=== PATIENT | male | born 1945 | race Caucasian/White ===

== ENCOUNTER → 2020-01-11 | Day surgery (SDC) | payer OTHER, BC ==
[2020-01-10 10:31] VITALS: BMI 31.2
[~2020-01-11] MED LIST: BUPIVACAINE HCL/PF 0.25% (2.5MG/ML) 10 ML VIAL ONE; BUPIVACAINE HCL/PF 0.75% 10 ML VIAL ONE; DEXAMETHASONE SOD PHOSPHATE 4 MG/1 ML VIAL ONE; LIDOCAINE HCL 1%, 10 MG/ML (20ML VIAL) INF ONE; LIDOCAINE HCL 1%, 10 MG/ML (20ML VIAL) ONE; LIDOCAINE HCL/PF 1% SDV 5ML VIAL ONE; TRIAMCINOLONE ACET 40MG/1ML VIAL ONE
--- NOTE | 2020-01-11 13:41 | PROC ---
Procedure Note Procedure: Pre procedure Diagnosis: Chronic Pain Syndrome/ Shoulder Pain Post Procedure Diagnosis: same Anesthesia: Local Procedure Performed: Right Suprascapular Nerve Peripheral Stimulator Placement The right shoulder was cleaned and prepped with chlorhexadine with a wide margin and allowed to dry. The external pulse generator (EPG) and grounding pad were placed over clean skin outside of the sterile field over the scapula of the affected shoulder. A sterile drape was placed exposing only the implantation site on the psoterior aspects of the shoulder corresponding to the anticipated position of the peripheral suprascapular nerve. A SPRProvasculon PNS device 17 gauge stimulating probe and introducer sleeve were assemb led. The target location for the treatment of shoulder pain is at the supracapular notch where the suprascapular nerve traverses on the affected side. The skin overlying the lead implantation site was anesthetized with 1 cc of 1% Lidocaine. Care was taken to assure that local anesthetic was not administered close to the target electrode implantation site to prevent an altered response to stimulation. Once the point was located, the stimulating probe needle was inserted and advanced along the intended course. Test stimulation was delivered to assist in identifying the optimal lead location. The probe was advanced to a depth of 4 cm, approximately 1 cm proximal to the depth that is used in standard needle insertion techniques. The test probe was connected to the stimulator using the provided cables and the amplitude was adjusted until the muscle was held in tension, repositioning the needle, as necessary, to identify the optimal location. Several parameters were tested until the patient indicated parasthesia overlapping the distribution of the patients typical region of pain. The stimulating probe was then removed from the introducer sleeve and a percutaneous lead was guided through the sleeve and delivered to the location in similar proximity to the nerve where the probe was tested. The proximal end of the lead was attached to a lead connector and EPG while the needle remained in position. The lead was disconnected from the connector block. Placing manual pressure at the distal tip of the introducer, the introducer was removed and the lead was deployed, secured and implanted. The exposed end of the percutaneous lead was then threaded through and secured into the connector block. Excess lead was trimmed to length. The cable was inserted into the stimulator and the stimulator was positioned on the lateral arm at which point the final stimulation response again confirmed optimal lead placement. The site was covered with a sterile occlusive dressing and a ultrasound image was taken to document final placement. The patient was observed for stability of vital signs and comfort. Optimized stimulation parameters were programmed into the stimulator. The patient and spouse/caregiver were instructed on the proper management of the site and use of the SPRINT PNS device and patient remote control. The patient was given a follow up appointment in the near future Jayy Javed DO
[2020-01-11 16:07] VITALS: PULSE 97; TEMP 96.4
[2020-01-11 16:09] VITALS: BP 124/71
== END | disposition home or self-care (01) ==
LOC: JASU-SURG 04:28
PROVIDERS: ATTEND Pain Medicine Pain Medicine
PROC: 4B01XVZ Measurement of Peripheral Nervous Stimulator, External Approach (ICD-10-PCS; 2020-01-11)
PROC: 01HY0MZ Insertion of Neurostimulator Lead into Peripheral Nerve, Open Approach (ICD-10-PCS; principal; 2020-01-11 12:00)
DX: G89.4 Chronic pain syndrome (principal); M25.511 Pain in right shoulder; E11.22 Type 2 diabetes mellitus with diabetic chronic kidney disease; N18.9 Chronic kidney disease, unspecified; Z99.2 Dependence on renal dialysis; Z85.46 Personal history of malignant neoplasm of prostate; I25.10 Atherosclerotic heart disease of native coronary artery without angina pectoris
CPT/HCPCS: 64555; C1778